=== PATIENT | female | born 1950 | race Caucasian/White ===

== ENCOUNTER → 2022-01-13 08:59 | Outpatient (CLI) | payer MEDICARE, OTHER, SELFPAY ==
--- NOTE | 2022-01-13 09:06 | DI.ECHO.S_ITS ---
[facility]---------+ [facility] +---------+ : : [address] : [address] : : : : [id number] : : : : Phone: [phone]---------+ Echocardiogram Report + + :Name: MITCH ALMANZA Study Date: 01/13/2022 Height: 65 in : :[facility] ReadingLocation: Weight: 140 lb : : Gender: Female BSA: 1.7 m2 : :: 1950 Age: 71 yrs BP: 154/97 mmHg: :Reason For Study: SOB : :Ordering Physician: LAKEISHA, : :MEGHA Performed By: Tony Hwang : :Referring: MEGHA SUAZO : + + Interpretation Summary 1) Normal left ventricular thickness, size, wall motion, and systolic function (EF 55-60%). 2) Normal right ventricular size and function. 3) No significant valvular abnormalities. 4) No prior Echo available for comparison. Procedure: A two-dimensional transthoracic echocardiogram with color flow and Doppler was performed. The study quality was technically adequate. There is no prior echocardiogram noted for this patient. Left Ventricle: The left ventricle is normal in size and wall thickness. Left ventricular systolic function is normal. The ejection fraction is estimated to be 55-60%. There are no focal wall motion abnormalities. Diastolic function could not be accurately assessed due to unobtainable data. Right Ventricle: The right ventricle is normal in size and function. Atria: Both atria are normal in size. The interatrial septum grossly appears intact with no obvious evidence for an atrial septal defect. Mitral Valve: The mitral valve is normal in structure and function. There is trace mitral regurgitation. Aortic Valve: The aortic valve is normal in structure and function. There is no aortic valve stenosis. No aortic regurgitation is present. Tricuspid Valve: The tricuspid valve is normal in structure and function. No tricuspid regurgitation. Pulmonary artery pressures cannot be estimated because of the lack of a measurable TR jet velocity. Pulmonic Valve: The pulmonic valve is normal in structure and function. There is no pulmonic valvular regurgitation. Great Vessels: The aortic root is normal size. The ascending aorta could not be visualized. The IVC is dilated (diameter is greater than 2.1 cm) yet it collapses greater than 50% with a sniff. This suggests a right atrial pressure of 8 mm Hg. Pericardium/ Pleura There is no pericardial effusion. There is no pleural effusion. MMode/2D Measurements & Calculations LVIDd: 4.6 cm LVOT diam: 2.0 cm LVIDs: 3.0 cm Ao root diam: 2.6 cm FS: 34.1 % IVSd: 0.90 cm LVPWd: 0.75 cm LV horvath. diameter/BSA (cm/m^2): 2.7 LV sys. diameter/BSA (cm/m^2): 1.8 LA dimension: 2.8 cm RA long axis: 4.3 cm LA A2 area: 13.7 cm2 IVC diam: 2.2 cm LA A4 area: 13.3 cm2 LA length (vol): 3.9 cm LA vol: 39.7 ml LA vol index: 23.3 ml/m2 TAPSE_phl: 2.5 cm Doppler Measurements & Calculations Ao V2 max: 93.3 cm/sec LVOT Max Amador: 92.0 cm/sec Ao V2 mean: 71.1 cm/sec LV V1 max P.4 mmHg Ao max P.0 mmHg LV V1 VTI: 21.0 cm Ao mean P.0 mmHg DION(I,D): 2.9 cm2 Ao V2 VTI: 22.4 cm DION(V,D): 3.1 cm2 sev ratio: 0.94 DION indexed to BSA (cm^2/m^2): 1.7 MV E max amador: 85.3 cm/sec SV(LVOT): 66.0 ml MV A max amador: 90.8 cm/sec MV E/A: 0.94 Med Peak E' Amador: 7.9 cm/sec E/E' med: 10.8 Lat Peak E' Amador: 9.3 cm/sec E/E' lat: 9.2 E/e' average: 10.0 MV dec time: 0.14 sec AV VR_phl: 0.99 MV P1/2t-pr_phl: 40.0 msec DION(VTI)/BSA_phl: 1.7 Reading Physician:04:13 PM
== END ==
PROVIDERS: PCP Internal Medicine; Referring Provider Physician Assistant; Visit Provider Physician Assistant
DX: R06.02 Shortness of breath (principal); R00.2 Palpitations; R94.31 Abnormal electrocardiogram [ECG] [EKG]; R53.83 Other fatigue; M54.9 Dorsalgia, unspecified
CPT/HCPCS: 93306